=== PATIENT | female | born 1985 | race African-American/Black ===

== ENCOUNTER 2016-08-10 21:33 | Observation (INO) | payer OTHER ==
[~2016-08-10 21:33] MED LIST: FERR325T PO; PRENTAB28 PO
== END 2016-08-10 23:12 | disposition home or self-care (01) | DRG 566 ==
LOC: LDRP 21:33
PROVIDERS: ADMIT Specialist; ATTEND Specialist
DX: O62.9 Abnormality of forces of labor, unspecified (principal); O76 Abnormality in fetal heart rate and rhythm complicating labor and delivery; Z3A.25 25 weeks gestation of pregnancy
CPT/HCPCS: 59025; 76818; 81002; 94760; G0378

== ENCOUNTER 2017-01-20 01:22 | Emergency (ER) | payer MEDICAID, OTHER ==
[~2017-01-20] VITALS: Ht 162.6 cm; Wt 63.5 kg
[2017-01-20 02:58] LABS: Basophils # (auto) 0 uL; Basophils % (auto) 0.3 % (0.0-2.0); CONDITION Y; Eosinophils # (auto) 0.1 uL; Eosinophils % (auto) 0.7 % (0.0-7.0); Hematocrit 38.8 % (36.0-46.0); Hemoglobin 12.9 g/dL (12.2-16.2); Lymphocytes # (auto) 1.7 uL; Lymphocytes % (auto) 22.4 % (10.0-50.0); Mean Corpuscular Hemoglobin 31.1 pg (28.0-32.0); Mean Corpuscular Hgb Conc. 33.4 g/dL (32.0-36.0); Mean Platelet Volume 10.3 fL (7.4-10.4); Monocytes # (auto) 0.4 uL; Monocytes % (auto) 5.1 % (0.0-12.0); Neutrophils # (auto) 5.4 uL; Neutrophils % (auto) 71.5 % (37.0-80.0); Platelet Count (auto) 304 10^3/uL (140-450); Red Cell Distribution Width 13.4 % (11.6-16.0); SUSPECT SEE PRINTOUT; White Blood Cell 7.5 10^3/uL (4.4-10.8)
[2017-01-20 03:38] LABS: BUN/Creatinine Ratio 29.2; Bilirubin, Total 0.5 mg/dL (0.2-1.0); Potassium 4.1 mmol/L (3.5-5.1); Total Protein 7.4 g/dL (6.4-8.2)
[2017-01-20 04:14] LABS: Urine Bilirubin Negative (Negative); Urine Blood Negative /uL (Negative); Urine Color Yellow (Yellow); Urine Glucose Normal (Normal); Urine Ketone Negative (Negative); Urine Nitrite Negative (Negative); Urine RBC 1 /hpf (0 - 4); Urine Squamous Epithelial Cell FEW /hpf (<5); Urine Urobilinogen Normal (Negative); Urine pH 6.5 (5.0-8.0)
[2017-01-20] MEDS ORDERED: KETOROLAC TROMETH 30 MG/ML 1ML VIAL IV ONE (06:45)
[2017-01-20] MEDS ORDERED: PROMETHAZINE HCL 25 MG/ML 1ML IV PRN (06:45)
[2017-01-20] MEDS ORDERED: SODIUM CHLORIDE 0.9% 1,000 ML IVB ONE (06:45)
[2017-01-20 08:50] VITALS: BP 109/63
== END 2017-01-20 10:16 | disposition home or self-care (01) ==
LOC: ER 01:24
DX: R10.9 Unspecified abdominal pain (principal); R11.0 Nausea; Z87.442 Personal history of urinary calculi
CPT/HCPCS: 36415; 74176; 80053; 81001; 82150; 83690; 83735; 84443; 84702; 85025; 96361; 96374; 96375; 99285; J1885; J2550; J7030

== ENCOUNTER 2021-08-24 11:36 | Emergency (ER) | payer MEDICAID ==
[~2021-08-24] VITALS: Ht 162.6 cm; Wt 68.0 kg
[~2021-08-24 11:36] MED LIST changes: +FERR-20 PO; -FERR325T PO
[2021-08-24 12:11] VITALS: BP 123/84
[2021-08-24 12:15] LABS: Basophils # (auto) 0 10 ^3/uL (0-0.2); Basophils % (auto) 0.4 % (0.0-2.0); Eosinophils # (auto) 0 10 ^3/uL (0-0.8); Eosinophils % (auto) 0.7 % (0.0-7.0); Hemoglobin 13.6 g/dL (12.2-16.2); Lymphocytes # (auto) 1.3 10 ^3/uL (0.4-5.4); Lymphocytes % (auto) 29.3 % (10.0-50.0); Mean Corpuscular Hemoglobin 30.4 pg (28.0-32.0); Mean Corpuscular Hgb Conc. 33.2 g/dL (32.0-36.0); Mean Corpuscular Volume 91.7 fL (80.0-100.0); Monocytes # (auto) 0.4 10 ^3/uL (0-1.3); Monocytes % (auto) 9.8 % (0.0-12.0); Neutrophils # (auto) 2.6 10 ^3/uL (1.6-8.6); Neutrophils % (auto) 59.8 % (37.0-80.0); Nucleated Red Blood Cells % 0.1 %; Red Blood Cells 4.47 10^6/uL (4.0-5.20); Red Cell Distribution Width 13.6 % (11.8-14.3); White Blood Cell 4.4 10^3/uL (4.4-10.8)
[2021-08-24 13:32] LABS: Urine Bacteria FEW /hpf (None Seen); Urine Blood Negative /uL (Negative); Urine Hyaline Cast FEW /lpf (0 - 2); Urine Mucus FEW (None Seen); Urine Specific Gravity 1.018 (1.001-1.035); Urine WBC <1 /hpf (0 - 5)
[2021-08-24] MEDS ORDERED: IBUP600T27 PO (14:45)
== END 2021-08-24 14:50 | disposition home or self-care (01) ==
LOC: ER 11:39
DX: D25.9 Leiomyoma of uterus, unspecified (principal); Z32.02 Encounter for pregnancy test, result negative; Z87.442 Personal history of urinary calculi
CPT/HCPCS: 36415; 76856; 81001; 84702; 85025